=== PATIENT | male | born 1940 | race Caucasian/White ===

== ENCOUNTER 2022-01-28 10:36 | Inpatient (IN) ==
[2022-01-28] MEDS ORDERED: 0.9 % Sodium Chloride 1,000 ML IVC ONE (10:39)
[2022-01-28 11:07] LABS: Basophils % 0.1 %; Hematocrit 36.7 % (37.5-50.1); Hemoglobin 13.1 g/dL (12.9-16.9); Immature Granulocytes % 0.4 % (0-4); Lymphocytes # 0.9 K/mcL (0.6-4.6); Lymphocytes % 10.2 %; Mean Corpuscular HGB Conc 35.7 g/dL (31.6-35.5); Mean Corpuscular Hemoglobin 33.3 pg (28.0-33.3); Mean Corpuscular Volume 93.4 fL (83.0-100.0); Mean Platelet Volume 8.6 fL (9.4-12.4); Monocytes # 0.7 K/mcL (0.0-1.3); Monocytes % 7.6 %; Platelet Count 181 K/mcL (140-400); Red Blood Count 3.93 M/mcL (4.19-5.50); Red Cell Distribution Width 12.7 % (11.5-14.5); Segmented Neutrophils % 81.7 %; White Blood Count 8.5 K/mcL (4.3-11.1)
[2022-01-28 11:17] LABS: Bilirubin,Urine Negative (Negative); Blood,Urine Small (Negative); Clarity,Urine Clear (Clear); Color,Urine Yellow (Yellow); Glucose,Urine (UA) Normal (Normal); Hyaline Casts,Urine Few per lpf (None Seen); Ketones,Urine 60 mg/dL (Negative); Leukocyte Esterase,Urine Negative (Negative); Mucus,Urine Few per lpf (None-Few); Nitrite,Urine Negative (Negative); Protein,Urine 200 mg/dL (Neg-Trace); Specific Gravity,Urine 1.022 (1.010-1.025); Urobilinogen,Urine Normal (Normal)
[2022-01-28 11:22] LABS: Amphetamine Screen,Urine Negative ng/mL (Cutoff=1000); Barbiturate Screen,Urine Negative ng/mL (Cutoff=200); Benzodiazepines Screen,Urine Negative ng/mL (Cutoff=200); Cannabinoid Screen,Urine Negative ng/mL (Cutoff = 50); Cocaine Screen,Urine Negative ng/mL (Cutoff= 300); Opiate Screen,Urine Negative ng/mL (Cutoff=300); Phencyclidine Screen,Urine Negative ng/mL (Cutoff=25)
[2022-01-28 11:26] LABS: INR 1.1; Prothrombin Time 12.5 Seconds (9.4-12.1)
[2022-01-28 11:28] LABS: Activated Partial Thrombo Time 30.1 Seconds (26.0-36.0)
[2022-01-28 11:34] LABS: Alanine Aminotransferase 12 Units/L (7-52); Albumin/Globulin Ratio 1.3 (1.1-2.2); Alkaline Phosphatase 50 Units/L (34-104); Aspartate Amino Transferase 21 Units/L (13-39); BUN/Creatinine Ratio 18 (6-26); Bilirubin,Direct 0.4 mg/dL (0.0-0.2); Bilirubin,Indirect 1.4 mg/dL (0.0-1.0); Bilirubin,Total 1.8 mg/dL (0.3-1.0); Blood Urea Nitrogen 20 mg/dL (8-23); Calcium 9.2 mg/dL (8.6-10.3); Carbon Dioxide 22 mEq/L (23-29); Chloride 101 mEq/L (98-107); Creatine Kinase 325 Units/L (30-223); Ethanol < 10 mg/dL (Less than 10); Globulin 3.1 g/dL (2.4-3.5); Glucose 107 mg/dL (70-105); Osmolality,Calculated 277 (280-300); Potassium 3.7 mEq/L (3.5-5.1); Sodium 132 mEq/L (136-145); Total Protein 7.1 g/dL (6.4-8.9); Troponin I 0.42 ng/mL (< 0.04); eGFR For African Americans > 60 (> 60); eGFR For Non-African Americans > 60 (> 60)
[2022-01-28] MEDS ORDERED: *HR* Heparin 5,000 UNIT/ML VIAL IVP ONE (11:58)
[2022-01-28] MEDS ORDERED: *HR* Heparin 5,000 UNIT/ML VIAL IVP PRN (11:58)
[2022-01-28] MEDS ORDERED: Perflutren Lipid Microsphere 1.3 ML in 0.9 % Sodium Chloride 8.7 ML IVP PRN (12:22)
[2022-01-28 12:45] LABS: Hemoglobin 12.9 g/dL (12.9-16.9); Mean Corpuscular HGB Conc 34.9 g/dL (31.6-35.5); Mean Corpuscular Volume 94.6 fL (83.0-100.0); Mean Platelet Volume 8.7 fL (9.4-12.4); Platelet Count 175 K/mcL (140-400); Red Blood Count 3.91 M/mcL (4.19-5.50); Red Cell Distribution Width 12.7 % (11.5-14.5); White Blood Count 9.8 K/mcL (4.3-11.1)
[2022-01-28] MEDS ORDERED: Furosemide 20 MG/2 ML VIAL IVP ONE (12:47)
[2022-01-28] MEDS ORDERED: Naloxone 0.4 MG/ML INJ IVP PRN (12:54)
[2022-01-28] MEDS ORDERED: Acetaminophen 325 MG TABLET PO PRN (12:54)
[2022-01-28] MEDS ORDERED: Ondansetron 4 MG/2 ML VIAL IVP PRN (12:54)
[2022-01-28 13:07] LABS: Heparin anti-factor XA UFH < 0.04 IU/mL (0.30-0.70); INR 1.1; Prothrombin Time 12.4 Seconds (9.4-12.1)
[2022-01-28 14:02] LABS: Folate 19.2 ng/mL (3.0-16.0)
[2022-01-28 14:18] LABS: Magnesium 1.9 mg/dL (1.6-2.6)
[2022-01-28 15:10] LABS: Lipase 13 Units/L (11-82)
[2022-01-28 15:45] LABS: Thyroid Stimulating Hormone 1.174 mcIU/mL (0.340-5.600)
[2022-01-28] MEDS: Heparin 25,000UNIT/250ML 1/2NS 25,000 UNIT/250 ML IV.SOLN IVC SCH (20:38)
[2022-01-29 04:48] LABS: Basophils % 0.1 %; Hematocrit 40.5 % (37.5-50.1); Hemoglobin 14.2 g/dL (12.9-16.9); Immature Granulocytes % 0.3 % (0-4); Lymphocytes # 1.1 K/mcL (0.6-4.6); Lymphocytes % 13.7 %; Mean Corpuscular HGB Conc 35.1 g/dL (31.6-35.5); Mean Corpuscular Hemoglobin 33.1 pg (28.0-33.3); Mean Corpuscular Volume 94.4 fL (83.0-100.0); Mean Platelet Volume 9.1 fL (9.4-12.4); Monocytes # 0.7 K/mcL (0.0-1.3); Monocytes % 9.2 %; Neutrophils # 6.1 K/mcL (1.6-8.9); Platelet Count 184 K/mcL (140-400); Red Blood Count 4.29 M/mcL (4.19-5.50); Red Cell Distribution Width 12.7 % (11.5-14.5); Segmented Neutrophils % 76.7 %; White Blood Count 7.9 K/mcL (4.3-11.1)
[2022-01-29 05:06] LABS: Alanine Aminotransferase 13 Units/L (7-52); Albumin/Globulin Ratio 1.4 (1.1-2.2); Alkaline Phosphatase 48 Units/L (34-104); Aspartate Amino Transferase 24 Units/L (13-39); BUN/Creatinine Ratio 26 (6-26); Bilirubin,Total 2.7 mg/dL (0.3-1.0); Blood Urea Nitrogen 25 mg/dL (8-23); Calcium 9.4 mg/dL (8.6-10.3); Carbon Dioxide 22 mEq/L (23-29); Chloride 101 mEq/L (98-107); Chol/HDL Ratio 2.5 (0-4.9); Cholesterol 150 mg/dL (< 200); Globulin 2.9 g/dL (2.4-3.5); Glucose 100 mg/dL (70-105); HDL Cholesterol 60 mg/dL (40-59); LDL Cholesterol,Calculated 81 mg/dL (< 100); Osmolality,Calculated 278 (280-300); Sodium 132 mEq/L (136-145); Total Protein 6.9 g/dL (6.4-8.9); Triglycerides 47 mg/dL (< 150); eGFR For African Americans > 60 (> 60); eGFR For Non-African Americans > 60 (> 60)
[2022-01-29] MEDS: Aspirin 81 MG TAB.CHEW PO SCH (08:49)
[2022-01-29] MEDS: Pantoprazole 40 MG VIAL IVP SCH (08:50)
[2022-01-29] MEDS ORDERED: Furosemide 40 MG/4 ML VIAL IVP SCH (09:00)
[2022-01-29] MEDS: Furosemide 40 MG/4 ML VIAL IVP SCH ×2 (09:03→16:55)
[2022-01-29] MEDS ORDERED: Sulfamethoxazole/Trimeth DS 1 EACH TABLET PO SCH (10:00)
[2022-01-29] MEDS ORDERED: Cyanocobalamin (B-12) 1,000 MCG/ML VIAL IM ONE (10:07)
[2022-01-29] MEDS: Heparin 25,000UNIT/250ML 1/2NS 25,000 UNIT/250 ML IV.SOLN IVC SCH (12:31)
[2022-01-29] MEDS: *HR* Heparin 5,000 UNIT/ML VIAL IVP PRN (12:38)
[2022-01-29] MEDS ORDERED: diazePAM 10 MG/2 ML SYRINGE IVP ONE (15:00)
[2022-01-29] MEDS ORDERED: diazePAM 10 MG/2 ML SYRINGE IVP STA (15:30)
[2022-01-29] MEDS ORDERED: diazePAM 10 MG/2 ML SYRINGE ONE (15:30)
[2022-01-29 16:45] LABS: Red Blood Cell,CSF < 2000 RBC/mcL
[2022-01-29 16:48] LABS: Appearance,CSF Clear (Clear); Basophils,CSF 0 %; Eosinophils,CSF 0 %
[2022-01-29] MEDS: Acyclovir 700 MG in D5% in Water 100 ML IVPB SCH (16:55)
[2022-01-29 17:09] LABS: Glucose,CSF 58 mg/dL (40-70); Total Protein,CSF 62 mg/dL (15-45)
[2022-01-29] MEDS ORDERED: cefTRIAXone 2,000 MG in 0.9 % Sodium Chloride 20 ML IVP ONE (18:00)
[2022-01-29] MEDS ORDERED: *HR* LORazepam 2 MG/ML VIAL IVP PRN (18:35)
[2022-01-29] MEDS: TRIMETH IVPB SCH (19:01)
[2022-01-29] MEDS: WATER IVPB SCH (19:01)
[2022-01-29] MEDS: SULFAMETHOXAZOLE IVPB SCH (19:01)
[2022-01-29] MEDS: D5 IVPB SCH (19:01)
[2022-01-29] MEDS ORDERED: Ampicillin 2,000 MG in 0.9 % Sodium Chloride Mini Bag 100 ML IVPB SCH (20:00)
[2022-01-29] MEDS: Vancomycin 1,250 MG/262.5 ML IV.SOLN IVPB SCH (21:25)
[2022-01-30] MEDS: Heparin 25,000UNIT/250ML 1/2NS 25,000 UNIT/250 ML IV.SOLN IVC SCH ×2 (00:47→16:01)
[2022-01-30] MEDS: Acyclovir 700 MG in D5% in Water 100 ML IVPB SCH ×3 (01:28→16:00)
[2022-01-30 01:36] LABS: Basophils % 0.1 %; Hemoglobin 14.5 g/dL (12.9-16.9); Immature Granulocytes % 0.4 % (0-4); Lymphocytes # 0.4 K/mcL (0.6-4.6); Lymphocytes % 5.9 %; Mean Corpuscular HGB Conc 36.3 g/dL (31.6-35.5); Mean Corpuscular Hemoglobin 33.3 pg (28.0-33.3); Mean Platelet Volume 8.9 fL (9.4-12.4); Monocytes # 0.2 K/mcL (0.0-1.3); Neutrophils # 6.3 K/mcL (1.6-8.9); Platelet Count 188 K/mcL (140-400); Red Blood Count 4.35 M/mcL (4.19-5.50); Red Cell Distribution Width 12.3 % (11.5-14.5); Segmented Neutrophils % 90.6 %
[2022-01-30 02:04] LABS: Alanine Aminotransferase 16 Units/L (7-52); Albumin 3.8 g/dL (3.5-5.7); Albumin/Globulin Ratio 1.2 (1.1-2.2); Alkaline Phosphatase 47 Units/L (34-104); Aspartate Amino Transferase 23 Units/L (13-39); BUN/Creatinine Ratio 31 (6-26); Bilirubin,Total 1.7 mg/dL (0.3-1.0); Blood Urea Nitrogen 30 mg/dL (8-23); Carbon Dioxide 21 mEq/L (23-29); Chloride 98 mEq/L (98-107); Creatine Kinase 155 Units/L (30-223); Globulin 3.3 g/dL (2.4-3.5); Glucose 118 mg/dL (70-105); Magnesium 1.8 mg/dL (1.6-2.6); Osmolality,Calculated 283 (280-300); Potassium 3.3 mEq/L (3.5-5.1); Sodium 133 mEq/L (136-145); Total Protein 7.1 g/dL (6.4-8.9); eGFR For African Americans > 60 (> 60); eGFR For Non-African Americans > 60 (> 60)
[2022-01-30] MEDS: *HR* Heparin 5,000 UNIT/ML VIAL IVP PRN (02:25)
[2022-01-30] MEDS: SULFAMETHOXAZOLE IVPB SCH ×2 (06:52→18:34)
[2022-01-30] MEDS: D5 IVPB SCH ×2 (06:52→18:34)
[2022-01-30] MEDS: TRIMETH IVPB SCH ×2 (06:52→18:34)
[2022-01-30] MEDS: WATER IVPB SCH ×2 (06:52→18:34)
[2022-01-30] MEDS ORDERED: Furosemide 40 MG/4 ML VIAL IVP SCH (09:00)
[2022-01-30] MEDS ORDERED: amLODIPine 5 MG TABLET PO SCH (09:00)
[2022-01-30] MEDS: Vancomycin 1,250 MG/262.5 ML IV.SOLN IVPB SCH ×2 (11:26→21:45)
[2022-01-30] MEDS: Aspirin 81 MG TAB.CHEW PO SCH (11:27)
[2022-01-30] MEDS: Cyanocobalamin (B-12) 1,000 MCG TABLET PO SCH (11:28)
[2022-01-30] MEDS: Pantoprazole 40 MG VIAL IVP SCH (11:33)
[2022-01-30] MEDS: cefTRIAXone 2,000 MG in 0.9 % Sodium Chloride Mini Bag 100 ML IVPB SCH ×2 (11:52→18:03)
[2022-01-30] MEDS: Furosemide 40 MG/4 ML VIAL IVP SCH (14:38)
[2022-01-30] MEDS: *HR* Heparin 5,000 UNIT/ML VIAL SQ SCH ×2 (16:00→21:47)
[2022-01-31] MEDS: Acyclovir 700 MG in D5% in Water 100 ML IVPB SCH ×2 (00:48→12:52)
[2022-01-31] MEDS: TRIMETH IVPB SCH (05:54)
[2022-01-31] MEDS: SULFAMETHOXAZOLE IVPB SCH (05:54)
[2022-01-31] MEDS: D5 IVPB SCH (05:54)
[2022-01-31] MEDS: WATER IVPB SCH (05:54)
[2022-01-31] MEDS: cefTRIAXone 2,000 MG in 0.9 % Sodium Chloride Mini Bag 100 ML IVPB SCH (05:58)
[2022-01-31] MEDS: *HR* Heparin 5,000 UNIT/ML VIAL SQ SCH ×3 (05:59→22:42)
[2022-01-31 07:34] LABS: Calcium 8.2 mg/dL (8.6-10.3); Potassium 2.9 mEq/L (3.5-5.1)
[2022-01-31] MEDS ORDERED: Potassium Chloride Elixir 20 MEQ/15 ML UDC PO ONE (08:46)
[2022-01-31] MEDS: Pantoprazole 40 MG VIAL IVP SCH (09:27)
[2022-01-31] MEDS: Cyanocobalamin (B-12) 1,000 MCG TABLET PO SCH ×2 (09:33→09:39)
[2022-01-31] MEDS: Aspirin 81 MG TAB.CHEW PO SCH (09:33)
[2022-01-31] MEDS ORDERED: Cyanocobalamin (B-12) 1,000 MCG/ML VIAL SQ ONE ×2 (10:21→12:45)
[2022-01-31 11:45] LABS: Bacteria,Urine Few per hpf (None-Few); Bilirubin,Urine Negative (Negative); Blood,Urine Moderate (Negative); Clarity,Urine Clear (Clear); Color,Urine Yellow (Yellow); Glucose,Urine (UA) Normal (Normal); Hyaline Casts,Urine Few per lpf (None Seen); Ketones,Urine Negative (Negative); Leukocyte Esterase,Urine Negative (Negative); Mucus,Urine Few per lpf (None-Few); Nitrite,Urine Negative (Negative); Protein,Urine 50 mg/dL (Neg-Trace); RBC,Urine 15-30 per hpf (0-3); Specific Gravity,Urine 1.027 (1.010-1.025); Urobilinogen,Urine Normal (Normal)
[2022-01-31 11:58] LABS: Sodium, Urine 47.9 mEq/L
[2022-01-31] MEDS ORDERED: 0.9 % Sodium Chloride 1,000 ML IVC SCH (21:15)
[2022-02-01] MEDS: Acyclovir 700 MG in D5% in Water 100 ML IVPB SCH ×3 (00:07→23:50)
[2022-02-01 03:46] LABS: Basophils % 0.1 %; Hematocrit 31.4 % (37.5-50.1); Immature Granulocytes % 0.4 % (0-4); Lymphocytes # 0.8 K/mcL (0.6-4.6); Lymphocytes % 9.6 %; Mean Corpuscular HGB Conc 36.6 g/dL (31.6-35.5); Mean Corpuscular Hemoglobin 33.1 pg (28.0-33.3); Mean Corpuscular Volume 90.5 fL (83.0-100.0); Mean Platelet Volume 9.4 fL (9.4-12.4); Monocytes # 0.7 K/mcL (0.0-1.3); Monocytes % 7.8 %; Platelet Count 182 K/mcL (140-400); Red Blood Count 3.47 M/mcL (4.19-5.50); Red Cell Distribution Width 12.2 % (11.5-14.5); Segmented Neutrophils % 82.1 %; White Blood Count 8.5 K/mcL (4.3-11.1)
[2022-02-01 03:47] LABS: Hemoglobin 11.5 g/dL (12.9-16.9)
[2022-02-01 03:50] LABS: Prothrombin Time 11.5 Seconds (9.4-12.1)
[2022-02-01 04:16] LABS: Albumin 3.3 g/dL (3.5-5.7); Albumin/Globulin Ratio 1.4 (1.1-2.2); Bilirubin,Direct 0.1 mg/dL (0.0-0.2); Bilirubin,Indirect 0.5 mg/dL (0.0-1.0); Bilirubin,Total 0.6 mg/dL (0.3-1.0); Calcium 8.5 mg/dL (8.6-10.3); Globulin 2.4 g/dL (2.4-3.5); Phosphorous 3.1 mg/dL (2.7-4.5); Potassium 3.7 mEq/L (3.5-5.1); Total Protein 5.7 g/dL (6.4-8.9)
[2022-02-01] MEDS: *HR* Heparin 5,000 UNIT/ML VIAL SQ SCH ×3 (05:30→21:01)
[2022-02-01] MEDS ORDERED: Sulfamethoxazole/Trimeth 17 ML in D5% in Water 500 ML IVPB SCH (06:00)
[2022-02-01] MEDS: Aspirin 81 MG TAB.CHEW PO SCH (10:16)
[2022-02-01] MEDS: Cyanocobalamin (B-12) 1,000 MCG TABLET PO SCH (10:16)
[2022-02-01] MEDS: Pantoprazole 40 MG VIAL IVP SCH (10:16)
[2022-02-01] MEDS ORDERED: 0.9 % Sodium Chloride 1,000 ML IVC SCH (14:30)
[2022-02-02 06:03] LABS: HSV Source CSF
[2022-02-02] MEDS: *HR* Heparin 5,000 UNIT/ML VIAL SQ SCH ×3 (06:48→20:51)
[2022-02-02 06:56] LABS: Basophils # 0.1 K/mcL (0.0-0.2); Basophils % 0.9 %; Eosinophils # 0.1 K/mcL (0.0-0.6); Eosinophils % 2.6 %; Hematocrit 35.8 % (37.5-50.1); Hemoglobin 12.6 g/dL (12.9-16.9); Immature Granulocytes % 0.2 % (0-4); Lymphocytes # 1.1 K/mcL (0.6-4.6); Lymphocytes % 20.2 %; Mean Corpuscular HGB Conc 35.2 g/dL (31.6-35.5); Mean Corpuscular Hemoglobin 33.7 pg (28.0-33.3); Mean Corpuscular Volume 95.7 fL (83.0-100.0); Mean Platelet Volume 9.5 fL (9.4-12.4); Monocytes # 0.5 K/mcL (0.0-1.3); Monocytes % 9.8 %; Neutrophils # 3.6 K/mcL (1.6-8.9); Platelet Count 155 K/mcL (140-400); Red Blood Count 3.74 M/mcL (4.19-5.50); Red Cell Distribution Width 12.8 % (11.5-14.5); Segmented Neutrophils % 66.3 %; White Blood Count 5.4 K/mcL (4.3-11.1)
[2022-02-02 07:19] LABS: Calcium 8.7 mg/dL (8.6-10.3); Potassium 4.1 mEq/L (3.5-5.1)
[2022-02-02] MEDS ORDERED: Gadolinium Contrast Agent (WT Based) IV PRN (07:59)
[2022-02-02] MEDS: Aspirin 81 MG TAB.CHEW PO SCH (08:48)
[2022-02-02] MEDS: Cyanocobalamin (B-12) 1,000 MCG TABLET PO SCH (08:48)
[2022-02-02] MEDS: Pantoprazole 40 MG VIAL IVP SCH (08:49)
[2022-02-02] MEDS ORDERED: levETIRAcetam 1,000 MG in 0.9 % Sodium Chloride 100 ML IVPB ONE (09:00)
[2022-02-02 09:30] LABS: Complement C3 73 mg/dL (87-200)
[2022-02-02] MEDS ORDERED: GADOBUTROL 30 MMOL/30 ML VIAL IVP ONE (13:12)
[2022-02-02 14:02] LABS: Calcium 8.6 mg/dL (8.6-10.3); Phosphorous 2.7 mg/dL (2.7-4.5); Potassium 4.3 mEq/L (3.5-5.1)
[2022-02-02] MEDS: Acyclovir 700 MG in D5% in Water 100 ML IVPB SCH ×2 (15:46→23:29)
[2022-02-03 03:23] LABS: Basophils % 0.7 %; Eosinophils # 0.2 K/mcL (0.0-0.6); Eosinophils % 3.7 %; Hemoglobin 11.7 g/dL (12.9-16.9); Immature Granulocytes % 0.3 % (0-4); Lymphocytes # 1.1 K/mcL (0.6-4.6); Lymphocytes % 18.8 %; Mean Corpuscular HGB Conc 35.5 g/dL (31.6-35.5); Mean Corpuscular Hemoglobin 33.5 pg (28.0-33.3); Mean Corpuscular Volume 94.6 fL (83.0-100.0); Mean Platelet Volume 9.4 fL (9.4-12.4); Monocytes # 0.6 K/mcL (0.0-1.3); Monocytes % 9.6 %; Platelet Count 172 K/mcL (140-400); Red Blood Count 3.49 M/mcL (4.19-5.50); Red Cell Distribution Width 12.8 % (11.5-14.5); Segmented Neutrophils % 66.9 %; White Blood Count 5.9 K/mcL (4.3-11.1)
[2022-02-03 03:38] LABS: BUN/Creatinine Ratio 22 (6-26); Blood Urea Nitrogen 29 mg/dL (8-23); Calcium 8.6 mg/dL (8.6-10.3); Carbon Dioxide 22 mEq/L (23-29); Chloride 107 mEq/L (98-107); Glucose 89 mg/dL (70-105); Osmolality,Calculated 281 (280-300); Potassium 4.2 mEq/L (3.5-5.1); Sodium 133 mEq/L (136-145); eGFR For African Americans > 60 (> 60); eGFR For Non-African Americans 51 (> 60)
[2022-02-03] MEDS: *HR* Heparin 5,000 UNIT/ML VIAL SQ SCH ×3 (05:45→20:46)
[2022-02-03] MEDS: Pantoprazole 40 MG VIAL IVP SCH (08:02)
[2022-02-03] MEDS: Cyanocobalamin (B-12) 1,000 MCG TABLET PO SCH ×2 (08:02→10:00)
[2022-02-03] MEDS: Aspirin 81 MG TAB.CHEW PO SCH ×2 (08:02→10:00)
[2022-02-03] MEDS: Acyclovir 700 MG in D5% in Water 100 ML IVPB SCH (12:39)
[2022-02-04] MEDS: Acyclovir 700 MG in D5% in Water 100 ML IVPB SCH ×3 (02:51→23:37)
[2022-02-04] MEDS: *HR* Heparin 5,000 UNIT/ML VIAL SQ SCH ×3 (02:52→20:24)
[2022-02-04 06:17] LABS: Basophils # 0.1 K/mcL (0.0-0.2); Basophils % 0.9 %; Eosinophils # 0.2 K/mcL (0.0-0.6); Eosinophils % 3.9 %; Hematocrit 34.9 % (37.5-50.1); Hemoglobin 12.1 g/dL (12.9-16.9); Immature Granulocytes % 0.3 % (0-4); Lymphocytes # 1.1 K/mcL (0.6-4.6); Lymphocytes % 19.1 %; Mean Corpuscular HGB Conc 34.7 g/dL (31.6-35.5); Mean Corpuscular Hemoglobin 32.9 pg (28.0-33.3); Mean Corpuscular Volume 94.8 fL (83.0-100.0); Mean Platelet Volume 9.2 fL (9.4-12.4); Monocytes # 0.5 K/mcL (0.0-1.3); Monocytes % 8.9 %; Neutrophils # 3.9 K/mcL (1.6-8.9); Platelet Count 176 K/mcL (140-400); Red Blood Count 3.68 M/mcL (4.19-5.50); Red Cell Distribution Width 12.8 % (11.5-14.5); Segmented Neutrophils % 66.9 %; White Blood Count 5.9 K/mcL (4.3-11.1)
[2022-02-04 06:26] LABS: BUN/Creatinine Ratio 27 (6-26); Blood Urea Nitrogen 30 mg/dL (8-23); Calcium 8.8 mg/dL (8.6-10.3); Carbon Dioxide 22 mEq/L (23-29); Chloride 107 mEq/L (98-107); Glucose 94 mg/dL (70-105); Osmolality,Calculated 282 (280-300); Potassium 4.7 mEq/L (3.5-5.1); Sodium 133 mEq/L (136-145); eGFR For African Americans > 60 (> 60); eGFR For Non-African Americans > 60 (> 60)
[2022-02-04] MEDS: Cyanocobalamin (B-12) 1,000 MCG TABLET PO SCH (09:43)
[2022-02-04] MEDS: Aspirin 81 MG TAB.CHEW PO SCH (09:43)
[2022-02-04 22:34] LABS: ANCA IFA Titer <1:20 (<1:20)
[2022-02-05] MEDS: *HR* Heparin 5,000 UNIT/ML VIAL SQ SCH ×3 (04:48→21:04)
[2022-02-05 06:31] LABS: Basophils % 0.6 %; Eosinophils # 0.2 K/mcL (0.0-0.6); Eosinophils % 3.5 %; Hematocrit 34.9 % (37.5-50.1); Immature Granulocytes % 0.3 % (0-4); Lymphocytes # 1.2 K/mcL (0.6-4.6); Lymphocytes % 18.1 %; Mean Corpuscular HGB Conc 34.4 g/dL (31.6-35.5); Mean Corpuscular Hemoglobin 32.9 pg (28.0-33.3); Mean Corpuscular Volume 95.6 fL (83.0-100.0); Mean Platelet Volume 9.1 fL (9.4-12.4); Monocytes # 0.6 K/mcL (0.0-1.3); Monocytes % 9.6 %; Neutrophils # 4.3 K/mcL (1.6-8.9); Platelet Count 164 K/mcL (140-400); Red Blood Count 3.65 M/mcL (4.19-5.50); Red Cell Distribution Width 13.2 % (11.5-14.5); Segmented Neutrophils % 67.9 %; White Blood Count 6.4 K/mcL (4.3-11.1)
[2022-02-05 06:49] LABS: BUN/Creatinine Ratio 24 (6-26); Blood Urea Nitrogen 26 mg/dL (8-23); Calcium 8.9 mg/dL (8.6-10.3); Carbon Dioxide 25 mEq/L (23-29); Chloride 106 mEq/L (98-107); Glucose 95 mg/dL (70-105); Osmolality,Calculated 283 (280-300); Potassium 4.7 mEq/L (3.5-5.1); Sodium 134 mEq/L (136-145); eGFR For African Americans > 60 (> 60); eGFR For Non-African Americans > 60 (> 60)
[2022-02-05] MEDS: Pantoprazole 40 MG VIAL IVP SCH (09:08)
[2022-02-05] MEDS: Aspirin 81 MG TAB.CHEW PO SCH (09:29)
[2022-02-05] MEDS: Cyanocobalamin (B-12) 1,000 MCG TABLET PO SCH (09:29)
[2022-02-05] MEDS: Acyclovir 700 MG in D5% in Water 100 ML IVPB SCH ×2 (11:46→23:38)
[2022-02-05] MEDS ORDERED: Cyanocobalamin (B-12) 1,000 MCG/ML VIAL IM ONE (16:18)
[2022-02-06 00:25] LABS: Enterovirus RNA Qual (PCR) NOT DETECTED
[2022-02-06 00:28] LABS: ANCA IFA Pattern NONE DETECTED (None Detected); Serine Protease-3 Antibody 1 AU/mL (0-19)
[2022-02-06 00:59] LABS: ANA IgG by ELISA NONE DETECTED (None Detected)
[2022-02-06] MEDS: *HR* Heparin 5,000 UNIT/ML VIAL SQ SCH ×3 (05:52→22:07)
[2022-02-06 09:38] LABS: BUN/Creatinine Ratio 23 (6-26); Blood Urea Nitrogen 22 mg/dL (8-23); Carbon Dioxide 18 mEq/L (23-29); Chloride 107 mEq/L (98-107); Glucose 102 mg/dL (70-105); Magnesium 1.9 mg/dL (1.6-2.6); Osmolality,Calculated 284 (280-300); Potassium 5.2 mEq/L (3.5-5.1); Sodium 135 mEq/L (136-145); eGFR For African Americans > 60 (> 60); eGFR For Non-African Americans > 60 (> 60)
[2022-02-06] MEDS: Cyanocobalamin (B-12) 1,000 MCG TABLET PO SCH (09:49)
[2022-02-06] MEDS: Aspirin 81 MG TAB.CHEW PO SCH (09:49)
[2022-02-06] MEDS: Acyclovir 700 MG in D5% in Water 100 ML IVPB SCH ×2 (12:27→22:24)
[2022-02-07] MEDS: *HR* Heparin 5,000 UNIT/ML VIAL SQ SCH ×3 (05:27→20:18)
[2022-02-07 07:05] LABS: BUN/Creatinine Ratio 29 (6-26); Blood Urea Nitrogen 27 mg/dL (8-23); Carbon Dioxide 25 mEq/L (23-29); Chloride 105 mEq/L (98-107); Glucose 92 mg/dL (70-105); Magnesium 1.9 mg/dL (1.6-2.6); Osmolality,Calculated 283 (280-300); Potassium 4.5 mEq/L (3.5-5.1); Sodium 134 mEq/L (136-145); eGFR For African Americans > 60 (> 60); eGFR For Non-African Americans > 60 (> 60)
[2022-02-07] MEDS ORDERED: QUEtiapine Fumarate 25 MG TABLET PO SCH (09:00)
[2022-02-07] MEDS: Cyanocobalamin (B-12) 1,000 MCG TABLET PO SCH (09:27)
[2022-02-07] MEDS: Aspirin 81 MG TAB.CHEW PO SCH (09:27)
[2022-02-07] MEDS: Acyclovir 700 MG in D5% in Water 100 ML IVPB SCH ×2 (14:14→20:21)
[2022-02-07] MEDS: QUEtiapine Fumarate 25 MG TABLET PO SCH (20:18)
[2022-02-07] MEDS: levETIRAcetam 250 MG TABLET PO SCH (20:18)
[2022-02-08] MEDS: Acyclovir 700 MG in D5% in Water 100 ML IVPB SCH (04:38)
[2022-02-08] MEDS: *HR* Heparin 5,000 UNIT/ML VIAL SQ SCH ×2 (06:19→15:10)
[2022-02-08 07:54] LABS: BUN/Creatinine Ratio 25 (6-26); Blood Urea Nitrogen 31 mg/dL (8-23); Calcium 8.9 mg/dL (8.6-10.3); Carbon Dioxide 26 mEq/L (23-29); Chloride 106 mEq/L (98-107); Glucose 108 mg/dL (70-105); Osmolality,Calculated 289 (280-300); Potassium 4.6 mEq/L (3.5-5.1); Sodium 136 mEq/L (136-145); eGFR For African Americans > 60 (> 60); eGFR For Non-African Americans 55 (> 60)
[2022-02-08] MEDS: QUEtiapine Fumarate 25 MG TABLET PO SCH (08:44)
[2022-02-08] MEDS: levETIRAcetam 250 MG TABLET PO SCH (08:44)
[2022-02-08] MEDS: Cyanocobalamin (B-12) 1,000 MCG TABLET PO SCH (08:44)
[2022-02-08] MEDS: Aspirin 81 MG TAB.CHEW PO SCH (08:44)
[2022-02-08 16:19] VITALS: BP 149/68; PULSE 59; TEMP 97.4; O2SAT 96
[2022-02-08] MEDS ORDERED: Acyclovir 700 MG in D5% in Water 100 ML IVPB SCH (17:00)
== END 2022-02-08 17:12 | DRG 97 ==
LOC: 2ANU 10:36 → EMEROOARM 10:36 → 2ANU 18:24 → SUATTDRO 01-29 15:12
PROVIDERS: ADMIT Student in an Organized Health Care Education/Training Program; ATTEND Internal Medicine